=== PATIENT | female | born 1955 | race Caucasian/White ===

== ENCOUNTER 2019-12-01 22:49 | Emergency (ER) | payer BC, MEDICARE ==
[~2019-12-01] VITALS: Ht 157.5 cm; Wt 54.0 kg
[~2019-12-01 22:49] MED LIST: ASPI-1071 PO; ATOR20TA66 PO; LOSA25TA96 PO; OMEP40CA13 PO; OXYC-150 PO
--- NOTE | 2019-12-01 22:55 | NUR ---
MD DUNN AWARE THAT PT WAS JUST SEEN AND D\C'D YESTERDAY WITH DX OF TIA. 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
--- NOTE | 2019-12-01 22:59 | NUR ---
PT TO CT SCAN WITH PRIMARY RN
[2019-12-01 23:24] LABS: BASOPHILS # (AUTO) 0.1 X10'3 (0-0.2); BASOPHILS % (AUTO) 0.7 % (0-1); EOSINOPHILS # (AUTO) 0.1 X10'3 (0-0.9); EOSINOPHILS % (AUTO) 1.9 % (0-6); HEMATOCRIT 37.8 % (35.0-45.0); LYMPHOCYTES # (AUTO) 3.2 X10'3 (1.1-4.8); LYMPHOCYTES % (AUTO) 45.2 % (21-51); MEAN CORPUSCULAR HEMOGLOBIN 33.4 PG (27.0-31.0); MEAN CORPUSCULAR HGB CONC 34.5 g/dL (33.0-36.5); MEAN CORPUSCULAR VOLUME 96.9 FL (78-98); MEAN PLATELET VOLUME 6.7 FL (7.4-10.4); MONOCYTES # (AUTO) 0.6 X10'3 (0-0.9); MONOCYTES % (AUTO) 8.5 % (2-12); NEUTROPHILS % (AUTO) 43.7 % (42-75); PLATELET COUNT 319 X10'3 (140-440); RED CELL DISTRIBUTION WIDTH 12.5 % (11.5-14.5)
[2019-12-01 23:35] LABS: PARTIAL THROMBOPLASTIN TIME 25 SECONDS (22-32)
[2019-12-01 23:37] LABS: ALANINE AMINOTRANSFERASE 18 U/L (12-78); ALBUMIN 4.3 G/DL (3.4-5.0); ALBUMIN/GLOBULIN RATIO 1.6 (1.1-1.5); ALKALINE PHOSPHATASE 76 IU/L (46-116); ANION GAP 10 (8-16); ASPARTATE AMINO TRANSFERASE 14 U/L (10-37); BILIRUBIN,TOTAL 0.4 MG/DL (0.1-1.0); BLOOD UREA NITROGEN 7 MG/DL (7-18); BUN/CREATININE RATIO 12.3 (6.6-38.0); CALCIUM 10.2 MG/DL (8.5-10.1); CHLORIDE 104 MMOL/L (99-107); CREATININE 0.57 MG/DL (0.40-0.90); GLUCOSE 93 MG/DL (70-104); POTASSIUM 3.1 MMOL/L (3.5-5.1); SODIUM 143 MMOL/L (135-145); TOTAL CARBON DIOXIDE 29.3 MMOL/L (24-32); eGFR > 90 ML/MIN
[2019-12-01 23:40] LABS: TROPONIN I < 0.04 NG/ML (0.0-0.05)
--- NOTE | 2019-12-01 23:55 | NUR ---
Called in for a level 1 stroke alert.
--- NOTE | 2019-12-02 00:30 | NUR ---
Per Dr. Mays the level stroke alert is cancelled due to it being caused by neck issues. Patient will be d/c home on potassium and she has already has md appointment to see Dr. Miller today.
[2019-12-02] MEDS ORDERED: potassium Cl 20 mEq SR tablet PO ONE (00:35)
[2019-12-02] MEDS ORDERED: morphine 4 MG/ML inj SYRINge IM ONE (00:35)
[2019-12-02 00:54] VITALS: BP 136/85
== END 2019-12-02 00:56 | disposition home or self-care (01) ==
LOC: ER 22:49
DX: R00.2 Palpitations (principal); M79.602 Pain in left arm; R20.0 Anesthesia of skin; R51 Headache; I10 Essential (primary) hypertension; G89.29 Other chronic pain; R42 Dizziness and giddiness; R20.2 Paresthesia of skin; M54.2 Cervicalgia; Z79.82 Long term (current) use of aspirin; Z79.899 Other long term (current) drug therapy; Z86.73 Personal history of transient ischemic attack (TIA), and cerebral infarction without residual deficits
CPT/HCPCS: 36415; 70450; 71045; 80053; 82948; 84484; 85025; 85610; 85730; 93005; 96372; 99284; J2270

== ENCOUNTER 2019-12-18 12:20 | Emergency (ER) | payer BC, MEDICARE ==
[~2019-12-18] VITALS: Ht 157.5 cm; Wt 54.0 kg
[2019-12-18] MEDS ORDERED: HYDR-4353 PO (13:26)
[2019-12-18] MEDS ORDERED: meclizine 12.5mg tablet PO ONE (15:50)
[2019-12-18] MEDS ORDERED: LORazepam 2 mg/ml vial IV ONE (15:50)
[2019-12-18] MEDS ORDERED: glucagon, human recombinant 1mg kit IV ONE (15:50)
[2019-12-18] MEDS ORDERED: ondansetron 4mg rapidly disintigrating tab PO ONE (15:50)
[2019-12-18] MEDS ORDERED: ondansetron/PF 4mg/2ml inj IV ONE (16:00)
[2019-12-18] MEDS ORDERED: morphine 4 MG/ML inj SYRINge IV ONE (16:00)
[2019-12-18 16:46] LABS: BASOPHILS % (AUTO) 0.3 % (0-1); EOSINOPHILS % (AUTO) 0.6 % (0-6); HEMATOCRIT 39.9 % (35.0-45.0); HEMOGLOBIN 13.4 g/dl (12.0-16.0); LYMPHOCYTES % (AUTO) 34.2 % (21-51); MEAN CORPUSCULAR HEMOGLOBIN 31.7 PG (27.0-31.0); MEAN CORPUSCULAR HGB CONC 33.6 g/dL (33.0-36.5); MEAN CORPUSCULAR VOLUME 94.5 FL (78-98); MEAN PLATELET VOLUME 7.1 FL (7.4-10.4); MONOCYTES # (AUTO) 0.5 X10'3 (0-0.9); NEUTROPHILS # (AUTO) 3.4 X10'3 (1.8-7.7); NEUTROPHILS % (AUTO) 56.9 % (42-75); PLATELET COUNT 324 X10'3 (140-440); RED BLOOD COUNT 4.23 X10'6 (4.20-5.60); RED CELL DISTRIBUTION WIDTH 11.9 % (11.5-14.5); WHITE BLOOD COUNT 5.9 X10'3 (4.5-11.0)
[2019-12-18 17:01] LABS: ALANINE AMINOTRANSFERASE 20 U/L (12-78); ALBUMIN 4.2 G/DL (3.4-5.0); ALBUMIN/GLOBULIN RATIO 1.4 (1.1-1.5); ALKALINE PHOSPHATASE 78 IU/L (46-116); ANION GAP 6 (8-16); ASPARTATE AMINO TRANSFERASE 15 U/L (10-37); BLOOD UREA NITROGEN 4 MG/DL (7-18); CALCIUM 10.2 MG/DL (8.5-10.1); CHLORIDE 107 MMOL/L (99-107); GLUCOSE 97 MG/DL (70-104); POTASSIUM 3.6 MMOL/L (3.5-5.1); SODIUM 143 MMOL/L (135-145); TOTAL CARBON DIOXIDE 30.2 MMOL/L (24-32); TOTAL PROTEIN 7.1 G/DL (6.4-8.2); eGFR > 90 ML/MIN
[2019-12-18] MEDS ORDERED: ONDA4TAB6 PO (19:44)
[2019-12-18] MEDS ORDERED: MECL-159 PO (19:44)
[2019-12-18] MEDS ORDERED: ZOLP5TAB2 PO (19:50)
[2019-12-18] MEDS ORDERED: POTA10TA36 PO (19:50)
--- NOTE | 2019-12-18 19:53 | NUR ---
GI LAB CALLED AT 1952. ETA 30 MINS FOR GI
[2019-12-18] MEDS ORDERED: LIDOcaine Viscous 15ml cup ONE (20:24)
[2019-12-18] MEDS ORDERED: fentaNYL/PF 50MCG/1 ML 2ML syringe ONE (20:24)
[2019-12-18] MEDS ORDERED: MIDAZolam 5mg/5ml vial ONE (20:24)
--- NOTE | 2019-12-18 20:33 | NUR ---
PT WENT TO THE GI LAB
[2019-12-18 20:35] VITALS: BP 131/85
[2019-12-18 20:55] VITALS: BP 121/71
[2019-12-18 21:05] VITALS: BP 106/70
[2019-12-18 21:15] VITALS: BP 107/64
[2019-12-18 21:25] VITALS: BP 103/65
[2019-12-18 21:53] VITALS: BP 111/78
== END 2019-12-18 21:54 | disposition home or self-care (01) ==
LOC: ER 12:21
DX: R13.10 Dysphagia, unspecified (principal); R42 Dizziness and giddiness; G89.29 Other chronic pain; M54.2 Cervicalgia; E04.9 Nontoxic goiter, unspecified; I10 Essential (primary) hypertension; Z86.73 Personal history of transient ischemic attack (TIA), and cerebral infarction without residual deficits; Z98.890 Other specified postprocedural states; Z79.82 Long term (current) use of aspirin; Z79.899 Other long term (current) drug therapy
CPT/HCPCS: 36415; 43450; 80053; 84439; 84443; 85025; 93005; 96374; 96375; 99152; 99285; J1610; J2060; J2250; J2270; J2405; J3010; J7040; J8597; A4620

== ENCOUNTER 2019-12-20 22:09 | Emergency (ER) | payer BC, MEDICARE ==
[~2019-12-20] VITALS: Ht 157.5 cm; Wt 54.5 kg
[~2019-12-20 22:09] MED LIST changes: -ATOR20TA66 PO; +HYDR-4353 PO; +MECL-159 PO; +ONDA4TAB6 PO; -OXYC-150 PO; +POTA10TA36 PO; +ZOLP5TAB2 PO
[2019-12-20] MEDS ORDERED: morphine 4 MG/ML inj SYRINge IV ONE (22:40)
[2019-12-20] MEDS ORDERED: normal saline 1000ml 1,000 ML IV ONE (22:40)
[2019-12-20] MEDS ORDERED: meclizine 12.5mg tablet PO ONE (22:40)
[2019-12-20] MEDS ORDERED: ketorolac trometh. 30mg/ml inj. IV ONE (22:40)
[2019-12-20] MEDS ORDERED: ondansetron/PF 4mg/2ml inj IV ONE (22:40)
[2019-12-20 22:57] LABS: BASOPHILS % (AUTO) 0.5 % (0-1); EOSINOPHILS # (AUTO) 0.1 X10'3 (0-0.9); EOSINOPHILS % (AUTO) 1.4 % (0-6); HEMATOCRIT 40.2 % (35.0-45.0); HEMOGLOBIN 13.7 g/dl (12.0-16.0); LYMPHOCYTES # (AUTO) 3.5 X10'3 (1.1-4.8); LYMPHOCYTES % (AUTO) 54.9 % (21-51); MEAN CORPUSCULAR HEMOGLOBIN 32.6 PG (27.0-31.0); MEAN CORPUSCULAR HGB CONC 34.2 g/dL (33.0-36.5); MEAN CORPUSCULAR VOLUME 95.3 FL (78-98); MONOCYTES # (AUTO) 0.4 X10'3 (0-0.9); MONOCYTES % (AUTO) 6.9 % (2-12); NEUTROPHILS # (AUTO) 2.3 X10'3 (1.8-7.7); NEUTROPHILS % (AUTO) 36.3 % (42-75); PLATELET COUNT 318 X10'3 (140-440); RED BLOOD COUNT 4.22 X10'6 (4.20-5.60); RED CELL DISTRIBUTION WIDTH 12.2 % (11.5-14.5); WHITE BLOOD COUNT 6.3 X10'3 (4.5-11.0)
[2019-12-20 23:12] LABS: ALANINE AMINOTRANSFERASE 20 U/L (12-78); ALBUMIN 4.2 G/DL (3.4-5.0); ALBUMIN/GLOBULIN RATIO 1.4 (1.1-1.5); ALKALINE PHOSPHATASE 77 IU/L (46-116); ANION GAP 8 (8-16); ASPARTATE AMINO TRANSFERASE 18 U/L (10-37); BILIRUBIN,TOTAL 0.5 MG/DL (0.1-1.0); BLOOD UREA NITROGEN 7 MG/DL (7-18); BUN/CREATININE RATIO 13.2 (6.6-38.0); CALCIUM 10.1 MG/DL (8.5-10.1); CHLORIDE 107 MMOL/L (99-107); CREATININE 0.53 MG/DL (0.40-0.90); GLUCOSE 93 MG/DL (70-104); POTASSIUM 3.7 MMOL/L (3.5-5.1); SODIUM 143 MMOL/L (135-145); TOTAL CARBON DIOXIDE 27.6 MMOL/L (24-32); TOTAL PROTEIN 7.2 G/DL (6.4-8.2); eGFR > 90 ML/MIN
[2019-12-20] MEDS ORDERED: LORA-269 PO (23:47)
[2019-12-20] MEDS ORDERED: MECL-159 PO (23:47)
[2019-12-21 00:03] VITALS: BP 130/86
== END 2019-12-21 00:16 | disposition home or self-care (01) ==
LOC: ER 22:10
DX: R42 Dizziness and giddiness (principal); I10 Essential (primary) hypertension; G89.29 Other chronic pain; Z86.73 Personal history of transient ischemic attack (TIA), and cerebral infarction without residual deficits; Z98.890 Other specified postprocedural states; Z79.82 Long term (current) use of aspirin; Z79.899 Other long term (current) drug therapy
CPT/HCPCS: 71045; 80053; 84484; 85025; 93005; 96361; 96374; 96375; 99285; J1885; J2270; J2405; J7030; J8597

== ENCOUNTER 2020-06-20 10:07 | Emergency (ER) | payer BC, MEDICARE ==
[~2020-06-20] VITALS: Ht 157.5 cm; Wt 54.5 kg
[~2020-06-20 10:07] MED LIST changes: +LORA-269 PO
[2020-06-20 10:34] LABS: BASOPHILS % (AUTO) 0.2 % (0-1); EOSINOPHILS % (AUTO) 0.9 % (0-6); HEMATOCRIT 40.7 % (35.0-45.0); HEMOGLOBIN 13.6 g/dl (12.0-16.0); LYMPHOCYTES # (AUTO) 1.4 X10'3 (1.1-4.8); LYMPHOCYTES % (AUTO) 27.1 % (21-51); MEAN CORPUSCULAR HEMOGLOBIN 31.9 PG (27.0-31.0); MEAN CORPUSCULAR HGB CONC 33.4 g/dL (33.0-36.5); MEAN CORPUSCULAR VOLUME 95.6 FL (78-98); MEAN PLATELET VOLUME 6.8 FL (7.4-10.4); MONOCYTES # (AUTO) 0.4 X10'3 (0-0.9); NEUTROPHILS # (AUTO) 3.4 X10'3 (1.8-7.7); NEUTROPHILS % (AUTO) 64.8 % (42-75); PLATELET COUNT 327 X10'3 (140-440); RED BLOOD COUNT 4.26 X10'6 (4.20-5.60); WHITE BLOOD COUNT 5.3 X10'3 (4.5-11.0)
[2020-06-20 10:47] LABS: ALANINE AMINOTRANSFERASE 24 U/L (12-78); ALBUMIN 4.5 G/DL (3.4-5.0); ALBUMIN/GLOBULIN RATIO 1.4 (1.1-1.5); ALKALINE PHOSPHATASE 96 IU/L (46-116); ANION GAP 9 (8-16); ASPARTATE AMINO TRANSFERASE 18 U/L (10-37); BILIRUBIN,TOTAL 0.9 MG/DL (0.1-1.0); BLOOD UREA NITROGEN 7 MG/DL (7-18); BUN/CREATININE RATIO 13.5 (6.6-38.0); CALCIUM 9.9 MG/DL (8.5-10.1); CHLORIDE 104 MMOL/L (99-107); CREATININE 0.52 MG/DL (0.40-0.90); GLUCOSE 102 MG/DL (70-104); POTASSIUM 3.8 MMOL/L (3.5-5.1); SODIUM 140 MMOL/L (135-145); TOTAL CARBON DIOXIDE 26.9 MMOL/L (24-32); TOTAL PROTEIN 7.7 G/DL (6.4-8.2); eGFR > 90 ML/MIN
[2020-06-20] MEDS ORDERED: ondansetron 4mg rapidly disintigrating tab PO ONE (13:20)
[2020-06-20] MEDS ORDERED: ketorolac tromethamine 15mg/ml inj. IM ONE (13:20)
[2020-06-20 13:40] LABS: D-DIMER < 0.19 MG/L FEU (0-0.50)
[2020-06-20 14:15] VITALS: BP 119/81
== END 2020-06-20 14:16 | disposition home or self-care (01) ==
LOC: ER 10:08
DX: R07.89 Other chest pain (principal); R22.42 Localized swelling, mass and lump, left lower limb; R10.32 Left lower quadrant pain; R06.02 Shortness of breath; I10 Essential (primary) hypertension; G89.29 Other chronic pain; Z98.890 Other specified postprocedural states; Z86.73 Personal history of transient ischemic attack (TIA), and cerebral infarction without residual deficits; Z79.82 Long term (current) use of aspirin; Z79.899 Other long term (current) drug therapy
CPT/HCPCS: 36415; 71045; 80053; 83880; 84484; 85025; 85379; 93005; 96372; 99285; J1885

== ENCOUNTER 2021-09-22 09:30 | Outpatient (CLI) | payer MEDICARE ==
[~2021-09-22 09:30] MED LIST changes: -OMEP40CA13 PO; +OMEP40CA21 PO; +POTA-205 PO; -POTA10TA36 PO
[2021-09-22] MEDS ORDERED: iohexol 300mg/ml 100ml inj. ONE (09:44)
== END 2021-09-22 23:59 | disposition home or self-care (01) ==
LOC: RAD 09:30
PROVIDERS: ATTEND Family Medicine
DX: K57.30 Diverticulosis of large intestine without perforation or abscess without bleeding (principal); M51.36 Other intervertebral disc degeneration, lumbar region; Z90.710 Acquired absence of both cervix and uterus; K76.0 Fatty (change of) liver, not elsewhere classified; K76.89 Other specified diseases of liver; K44.9 Diaphragmatic hernia without obstruction or gangrene
CPT/HCPCS: 74177; Q9967

== ENCOUNTER 2023-07-15 12:50 | Outpatient (CLI) | payer MEDICARE ==
[~2023-07-15 12:50] MED LIST changes: +LOSA-415 PO; -LOSA25TA96 PO; -MECL-159 PO; +MECL-302 PO
[2023-07-15 14:14] LABS: BILIRUBIN,URINE NEGATIVE (Neg); CLARITY,URINE CLEAR (Clear); COLOR,URINE STRAW (Yellow); GLUCOSE, URINE NEGATIVE (Neg); KETONES,URINE NEGATIVE (Neg); LEUKOCYTE ESTERASE ,URINE NEGATIVE (Neg); NITRITES, URINE NEGATIVE (Neg); OCCULT BLOOD,URINE TRACE-INTACT (Neg); PROTEIN,URINE NEGATIVE (Neg); UROBILINOGEN,URINE 0.2 E.U/dL (0.2-1.0)
[2023-07-15 14:15] LABS: BASOPHILS % (AUTO) 0.1 % (0-1); EOSINOPHILS % (AUTO) 0 % (0-6); HEMATOCRIT 40.9 % (35.0-45.0); HEMOGLOBIN 13.6 g/dl (12.0-16.0); LYMPHOCYTES # (AUTO) 0.7 X10'3 (1.1-4.8); LYMPHOCYTES % (AUTO) 8.6 % (21-51); MEAN CORPUSCULAR HEMOGLOBIN 33.4 PG (27.0-31.0); MEAN CORPUSCULAR HGB CONC 33.2 g/dL (33.0-36.5); MEAN CORPUSCULAR VOLUME 100.4 FL (78-98); MEAN PLATELET VOLUME 6.9 FL (7.4-10.4); MONOCYTES # (AUTO) 0.4 X10'3 (0-0.9); MONOCYTES % (AUTO) 5.4 % (2-12); NEUTROPHILS # (AUTO) 6.5 X10'3 (1.8-7.7); NEUTROPHILS % (AUTO) 85.9 % (42-75); PLATELET COUNT 308 X10'3 (140-440); RED BLOOD COUNT 4.07 X10'6 (4.20-5.60); RED CELL DISTRIBUTION WIDTH 14.1 % (11.5-14.5); WHITE BLOOD COUNT 7.5 X10'3 (4.5-11.0)
[2023-07-15 14:16] LABS: UA COLLECTION TYPE CLN CATCH MIDSTREAM
[2023-07-15 14:22] LABS: WBC,URINE 0-4 /HPF (0-4)
[2023-07-15 14:23] LABS: BACTERIA,URINE FEW /HPF (Neg); SQUAMOUS EPITHELIAL CELL,UR MODERATE /LPF (FEW)
[2023-07-15 14:36] LABS: ALANINE AMINOTRANSFERASE 22 U/L (12-78); ALBUMIN 4.2 G/DL (3.4-5.0); ALBUMIN/GLOBULIN RATIO 1.3 (1.1-1.5); ALKALINE PHOSPHATASE 89 IU/L (46-116); ANION GAP 6 (8-16); ASPARTATE AMINO TRANSFERASE 27 U/L (10-37); BILIRUBIN,TOTAL 1.6 MG/DL (0.1-1.0); BLOOD UREA NITROGEN 8 MG/DL (7-18); BUN/CREATININE RATIO 14.5 (10.0-20.0); CALCIUM 10.2 MG/DL (8.5-10.1); CHLORIDE 102 MMOL/L (99-107); CHOLESTEROL 290 MG/DL (0-200); CREATININE 0.55 MG/DL (0.40-0.90); FREE T4 (FREE THYROXINE) 0.75 NG/DL (0.73-1.40); GLUCOSE 111 MG/DL (70-104); LDL CHOLESTEROL 103 MG/DL (50-100); POTASSIUM 4.3 MMOL/L (3.5-5.1); SODIUM 138 MMOL/L (135-145); TOTAL CARBON DIOXIDE 29.8 MMOL/L (24-32); TOTAL PROTEIN 7.4 G/DL (6.4-8.2); TRIGLYCERIDES 96 MG/DL (20-135); eGFR > 90 ML/MIN
[2023-07-15 15:03] LABS: HDL CHOLESTEROL 151 MG/DL (35-60)
== END 2023-07-15 23:59 | disposition home or self-care (01) ==
LOC: RAD 12:50
PROVIDERS: ATTEND Family Medicine
DX: M47.812 Spondylosis without myelopathy or radiculopathy, cervical region (principal); M48.02 Spinal stenosis, cervical region; M43.13 Spondylolisthesis, cervicothoracic region; M54.2 Cervicalgia; I10 Essential (primary) hypertension; E05.90 Thyrotoxicosis, unspecified without thyrotoxic crisis or storm
CPT/HCPCS: 36415; 72141; 80053; 80061; 81001; 84439; 84443; 85025

== ENCOUNTER 2023-12-25 11:26 | Inpatient (IN) | payer MEDICARE ==
[~2023-12-25] VITALS: Ht 157.5 cm; Wt 54.5 kg
[2023-12-25 14:23] LABS: BASOPHILS % (AUTO) 0.3 % (0-1); EOSINOPHILS # (AUTO) 0.1 X10'3 (0-0.9); EOSINOPHILS % (AUTO) 0.9 % (0-6); HEMATOCRIT 41.4 % (35.0-45.0); HEMOGLOBIN 13.8 g/dl (12.0-16.0); LYMPHOCYTES % (AUTO) 34.9 % (21-51); MEAN CORPUSCULAR HEMOGLOBIN 32.9 PG (27.0-31.0); MEAN CORPUSCULAR HGB CONC 33.2 g/dL (33.0-36.5); MEAN PLATELET VOLUME 6.7 FL (7.4-10.4); MONOCYTES # (AUTO) 0.5 X10'3 (0-0.9); MONOCYTES % (AUTO) 8.5 % (2-12); NEUTROPHILS # (AUTO) 3.1 X10'3 (1.8-7.7); NEUTROPHILS % (AUTO) 55.4 % (42-75); PLATELET COUNT 226 X10'3 (140-440); RED BLOOD COUNT 4.18 X10'6 (4.20-5.60); RED CELL DISTRIBUTION WIDTH 14.1 % (11.5-14.5); WHITE BLOOD COUNT 5.6 X10'3 (4.5-11.0)
[2023-12-25 14:42] LABS: ALBUMIN 4.2 G/DL (3.4-5.0); ANION GAP 10 (8-16); BLOOD UREA NITROGEN 8 MG/DL (7-18); BUN/CREATININE RATIO 14.8 (10.0-20.0); CALCIUM 9.7 MG/DL (8.5-10.1); CHLORIDE 103 MMOL/L (99-107); CREATININE 0.54 MG/DL (0.40-0.90); GLUCOSE 142 MG/DL (70-104); SODIUM 141 MMOL/L (135-145); TOTAL CARBON DIOXIDE 28.1 MMOL/L (24-32); eCRCL 80 ML/MIN; eGFR > 90 ML/MIN
[2023-12-25 14:47] LABS: APTT 22 SECONDS (22-32); PROTHROMBIN TIME 10.7 SECONDS (9.0-12.0)
[2023-12-25] MEDS ORDERED: magnesium Cl slow-release 64mg tablet PO PRN (17:45)
[2023-12-25] MEDS ORDERED: potassium Cl 20 mEq SR tablet PO PRN ×2 (17:45)
[2023-12-25] MEDS ORDERED: potassium Cl 40MEQ/1/2NS 520ml 520 ML IV PRN (17:45)
[2023-12-25] MEDS ORDERED: magnesium 4gm in 100ml NS 100 ML IV PRN (17:45)
[2023-12-25] MEDS ORDERED: magnesium 2GM in 50ml NS 50 ML IV PRN (17:45)
[2023-12-25] MEDS ORDERED: acetaminophen 325mg tablet PO PRN ×2 (17:45)
[2023-12-25] MEDS: aspirin 325mg tablet PO ONE (18:18)
[2023-12-25] MEDS: normal saline 1000ml 1,000 ML IV SCH (19:18)
[2023-12-25] MEDS: enoxaparin 40mg/0.4ml syringe SQ SCH (19:27)
[2023-12-25] MEDS: ondansetron/PF 4mg/2ml inj IV PRN (19:27)
[2023-12-25] MEDS: HYDROcodone/acetaminophen 5mg/325mg tablet PO PRN (19:28)
[2023-12-25] MEDS: morphine 2 MG/ML inj. syringe IV PRN (20:57)
[2023-12-25] MEDS: pantoprazole 40mg Tablet.DR PO STA (22:48)
[2023-12-26] MEDS ORDERED: ATEN50TA8 PO (00:10)
[2023-12-26] MEDS ORDERED: PANT40TA54 PO (00:10)
[2023-12-26] MEDS ORDERED: METH-604 (00:10)
[2023-12-26] MEDS ORDERED: ZOLP10TA PO (00:10)
[2023-12-26] MEDS ORDERED: PANT-47 PO (00:12)
[2023-12-26] MEDS: HYDROcodone/acetaminophen 10/325mg tab PO SCH (01:19)
[2023-12-26] MEDS: zolpidem 5mg tablet PO ONE (01:19)
[2023-12-26 03:37] LABS: BASOPHILS % (AUTO) 0.2 % (0-1); EOSINOPHILS # (AUTO) 0.1 X10'3 (0-0.9); EOSINOPHILS % (AUTO) 1.9 % (0-6); HEMATOCRIT 35.9 % (35.0-45.0); HEMOGLOBIN 11.9 g/dl (12.0-16.0); LYMPHOCYTES % (AUTO) 41.5 % (21-51); MEAN CORPUSCULAR HEMOGLOBIN 32.7 PG (27.0-31.0); MEAN CORPUSCULAR HGB CONC 33.2 g/dL (33.0-36.5); MEAN CORPUSCULAR VOLUME 98.4 FL (78-98); MEAN PLATELET VOLUME 6.7 FL (7.4-10.4); MONOCYTES # (AUTO) 0.5 X10'3 (0-0.9); MONOCYTES % (AUTO) 10.5 % (2-12); NEUTROPHILS # (AUTO) 2.2 X10'3 (1.8-7.7); NEUTROPHILS % (AUTO) 45.9 % (42-75); PLATELET COUNT 192 X10'3 (140-440); RED BLOOD COUNT 3.64 X10'6 (4.20-5.60); WHITE BLOOD COUNT 4.8 X10'3 (4.5-11.0)
[2023-12-26 03:45] LABS: ALANINE AMINOTRANSFERASE 20 U/L (12-78); ALBUMIN 3.3 G/DL (3.4-5.0); ALBUMIN/GLOBULIN RATIO 1.3 (1.1-1.5); ALKALINE PHOSPHATASE 84 IU/L (46-116); ANION GAP 4 (8-16); ASPARTATE AMINO TRANSFERASE 20 U/L (10-37); BILIRUBIN,TOTAL 1.2 MG/DL (0.1-1.0); BLOOD UREA NITROGEN 8 MG/DL (7-18); BUN/CREATININE RATIO 16.3 (10.0-20.0); CHLORIDE 108 MMOL/L (99-107); CREATININE 0.49 MG/DL (0.40-0.90); GLUCOSE 111 MG/DL (70-104); POTASSIUM 3.6 MMOL/L (3.5-5.1); SODIUM 143 MMOL/L (135-145); TOTAL CARBON DIOXIDE 31.1 MMOL/L (24-32); TOTAL PROTEIN 5.8 G/DL (6.4-8.2); eCRCL 88 ML/MIN; eGFR > 90 ML/MIN
[2023-12-26] MEDS: aspirin 81mg, enteric-coated 1 TAB TABLET.DR PO SCH (07:14)
[2023-12-26] MEDS: pantoprazole 40mg Tablet.DR PO SCH (08:19)
[2023-12-26] MEDS: LORazepam 1 MG tablet PO ONE (08:19)
[2023-12-26] MEDS: atenolol 50mg tablet PO SCH (08:20)
[2023-12-26] MEDS: atorvastatin 20mg tablet PO SCH (10:41)
[2023-12-26] MEDS: clopidogrel 75mg tablet PO SCH (10:41)
[2023-12-26 12:37] LABS: CHOL/HDL RATIO 2.2 (0.00-4.99); CHOLESTEROL 201 MG/DL (0-200); HDL CHOLESTEROL 90 MG/DL (35-60); LDL CHOLESTEROL 84 MG/DL (50-100); TRIGLYCERIDES 96 MG/DL (20-135)
[2023-12-26 12:52] LABS: HEMOGLOBIN A1C 4.9 % (4.5-6.2)
[2023-12-26] MEDS ORDERED: iohexol 350MG/ML 100ml bottle IV ONE (13:39)
[2023-12-26 20:00] VITALS: BP 125/77; PULSE 83; RESP 16; TEMP 98.2; O2SAT 98
[2023-12-26] MEDS: zolpidem 5mg tablet PO SCH (21:30)
[2023-12-26 22:00] VITALS: BP 128/88; PULSE 80; RESP 16; TEMP 97.9; O2SAT 95
[2023-12-27 00:04] VITALS: BP 123/71; PULSE 72; RESP 16; TEMP 98; O2SAT 98
[2023-12-27 04:03] VITALS: BP 126/90; PULSE 66; RESP 16; TEMP 97.7; O2SAT 95
[2023-12-27 06:00] VITALS: BP 130/84; PULSE 71; RESP 16; TEMP 97.9; O2SAT 96
[2023-12-27 06:11] LABS: BASOPHILS % (AUTO) 0.2 % (0-1); EOSINOPHILS # (AUTO) 0.1 X10'3 (0-0.9); EOSINOPHILS % (AUTO) 2.3 % (0-6); HEMOGLOBIN 11.8 g/dl (12.0-16.0); LYMPHOCYTES # (AUTO) 1.9 X10'3 (1.1-4.8); LYMPHOCYTES % (AUTO) 49.1 % (21-51); MEAN CORPUSCULAR HEMOGLOBIN 33.4 PG (27.0-31.0); MEAN CORPUSCULAR HGB CONC 33.7 g/dL (33.0-36.5); MEAN CORPUSCULAR VOLUME 99.1 FL (78-98); MEAN PLATELET VOLUME 6.7 FL (7.4-10.4); MONOCYTES # (AUTO) 0.4 X10'3 (0-0.9); MONOCYTES % (AUTO) 10.2 % (2-12); NEUTROPHILS # (AUTO) 1.5 X10'3 (1.8-7.7); NEUTROPHILS % (AUTO) 38.2 % (42-75); PLATELET COUNT 191 X10'3 (140-440); RED BLOOD COUNT 3.53 X10'6 (4.20-5.60); WHITE BLOOD COUNT 3.9 X10'3 (4.5-11.0)
[2023-12-27 06:33] LABS: ALANINE AMINOTRANSFERASE 16 U/L (12-78); ALBUMIN 3.3 G/DL (3.4-5.0); ALBUMIN/GLOBULIN RATIO 1.3 (1.1-1.5); ALKALINE PHOSPHATASE 77 IU/L (46-116); ANION GAP 9 (8-16); ASPARTATE AMINO TRANSFERASE 19 U/L (10-37); BILIRUBIN,TOTAL 1.2 MG/DL (0.1-1.0); BLOOD UREA NITROGEN 6 MG/DL (7-18); CHLORIDE 111 MMOL/L (99-107); CREATININE 0.46 MG/DL (0.40-0.90); GLUCOSE 95 MG/DL (70-104); POTASSIUM 3.8 MMOL/L (3.5-5.1); SODIUM 147 MMOL/L (135-145); TOTAL CARBON DIOXIDE 26.6 MMOL/L (24-32); TOTAL PROTEIN 5.8 G/DL (6.4-8.2); eCRCL 94 ML/MIN; eGFR > 90 ML/MIN
[2023-12-27] MEDS: morphine 2 MG/ML inj. syringe IV PRN (09:26)
[2023-12-27 10:00] VITALS: BP 142/80; PULSE 71; RESP 16; TEMP 98.6; O2SAT 95
[2023-12-27] MEDS ORDERED: ASPI-1071 PO (12:22)
[2023-12-27] MEDS ORDERED: ATOR20TA66 PO (12:22)
[2023-12-27] MEDS ORDERED: PANT40TA54 PO (12:22)
[2023-12-27] MEDS ORDERED: CLOP75TA34 PO (14:32)
[2023-12-27 15:15] VITALS: RESP 15
[2023-12-27] MEDS ORDERED: HYDR-3965 PO (17:29)
== END 2023-12-27 15:30 | disposition home health service (06) | DRG 65 ==
LOC: ER 11:27 → ED HOLD 17:49 → EDBEDREQ 12-26 18:25 → ORTHO 4S 12-26 19:28
PROVIDERS: ADMIT Internal Medicine; ATTEND Internal Medicine
PROC: B3251ZZ Computerized Tomography (CT Scan) of Bilateral Common Carotid Arteries using Low Osmolar Contrast (ICD-10-PCS; principal; 2023-12-26)
PROC: B32G1ZZ Computerized Tomography (CT Scan) of Bilateral Vertebral Arteries using Low Osmolar Contrast (ICD-10-PCS; 2023-12-26)
PROC: B32R1ZZ Computerized Tomography (CT Scan) of Intracranial Arteries using Low Osmolar Contrast (ICD-10-PCS; 2023-12-26)
PROC: B3281ZZ Computerized Tomography (CT Scan) of Bilateral Internal Carotid Arteries using Low Osmolar Contrast (ICD-10-PCS; 2023-12-26)
DX: I63.9 Cerebral infarction, unspecified (principal); E44.1 Mild protein-calorie malnutrition; E87.1 Hypo-osmolality and hyponatremia; G81.91 Hemiplegia, unspecified affecting right dominant side; K21.9 Gastro-esophageal reflux disease without esophagitis; E78.5 Hyperlipidemia, unspecified; E87.8 Other disorders of electrolyte and fluid balance, not elsewhere classified; G89.4 Chronic pain syndrome; M43.12 Spondylolisthesis, cervical region; E80.6 Other disorders of bilirubin metabolism; D53.9 Nutritional anemia, unspecified; I67.82 Cerebral ischemia; E03.9 Hypothyroidism, unspecified; G43.909 Migraine, unspecified, not intractable, without status migrainosus; I10 Essential (primary) hypertension; Z82.3 Family history of stroke; Z82.49 Family history of ischemic heart disease and other diseases of the circulatory system; Z86.73 Personal history of transient ischemic attack (TIA), and cerebral infarction without residual deficits; Z98.1 Arthrodesis status; Z68.22 Body mass index [BMI] 22.0-22.9, adult; Z79.891 Long term (current) use of opiate analgesic
CPT/HCPCS: 36415; 70450; 70496; 70498; 70551; 71045; 72125; 80048; 80053; 80061; 82948; 83036; 85025; 85610; 85730; 87081; 93005; 93306; 93880; 97116; 97161; 97530; 99285; G0378; J1650; J2270; J2405; J3490; J7030; Q9967

== ENCOUNTER 2024-01-08 21:40 | Emergency (ER) | payer MEDICARE ==
[~2024-01-08] VITALS: Ht 157.5 cm; Wt 55.0 kg
[~2024-01-08 21:40] MED LIST changes: +ATEN50TA8 PO; +ATOR20TA66 PO; +CLOP75TA34 PO; +HYDR-3965 PO; -LORA-269 PO; -LOSA-415 PO; -MECL-302 PO; +METH-604; -OMEP40CA21 PO; -ONDA4TAB6 PO; +PANT40TA54 PO; -POTA-205 PO; +ZOLP10TA PO; -ZOLP5TAB2 PO
[2024-01-08 21:58] VITALS: TEMP 97.5
[2024-01-08] MEDS: normal saline 1000ML IV soln IVB STA (22:20)
[2024-01-08] MEDS: diphenhydrAMINE 50 mg/ml inj IV ONE (22:22)
[2024-01-08] MEDS: methylPREDNISolone sod succ 125mg/2ml vial IV ONE (22:24)
[2024-01-08] MEDS: famotidine/PF 10 mg/ml inj IV ONE (22:31)
[2024-01-08] MEDS: triamcinolone acetonide 40mg/ml inj IM ONE (22:35)
[2024-01-08 23:30] VITALS: BP 136/81; PULSE 69; RESP 13; O2SAT 95
== END 2024-01-09 00:38 | disposition home or self-care (01) ==
LOC: ER 21:41
DX: K14.0 Glossitis (principal); I10 Essential (primary) hypertension; Z88.8 Allergy status to other drugs, medicaments and biological substances; Z79.899 Other long term (current) drug therapy
CPT/HCPCS: 96361; 96372; 96374; 96375; 99285; J1200; J2930; J3301; J3490; J7030

== ENCOUNTER 2024-02-05 14:09 | Emergency (ER) | payer MEDICARE ==
[~2024-02-05] VITALS: Ht 157.5 cm; Wt 53.0 kg
[~2024-02-05 14:09] MED LIST changes: -ASPI-1071 PO; -CLOP75TA34 PO; -HYDR-3965 PO
[2024-02-05 14:26] VITALS: TEMP 98.8
[2024-02-05 15:05] LABS: BASOPHILS % (AUTO) 0.3 % (0-1); EOSINOPHILS % (AUTO) 0.6 % (0-6); HEMATOCRIT 39.8 % (35.0-45.0); HEMOGLOBIN 13.3 g/dl (12.0-16.0); LYMPHOCYTES # (AUTO) 2.1 X10'3 (1.1-4.8); LYMPHOCYTES % (AUTO) 29.3 % (21-51); MEAN CORPUSCULAR HEMOGLOBIN 31.9 PG (27.0-31.0); MEAN CORPUSCULAR HGB CONC 33.4 g/dL (33.0-36.5); MEAN CORPUSCULAR VOLUME 95.4 FL (78-98); MEAN PLATELET VOLUME 6.8 FL (7.4-10.4); MONOCYTES # (AUTO) 0.4 X10'3 (0-0.9); MONOCYTES % (AUTO) 6.1 % (2-12); NEUTROPHILS # (AUTO) 4.6 X10'3 (1.8-7.7); NEUTROPHILS % (AUTO) 63.7 % (42-75); PLATELET COUNT 269 X10'3 (140-440); RED BLOOD COUNT 4.17 X10'6 (4.20-5.60); RED CELL DISTRIBUTION WIDTH 13.1 % (11.5-14.5); WHITE BLOOD COUNT 7.2 X10'3 (4.5-11.0)
[2024-02-05 15:24] LABS: ALBUMIN 3.8 G/DL (3.4-5.0); ANION GAP 10 (8-16); BLOOD UREA NITROGEN 12 MG/DL (7-18); CALCIUM 9.8 MG/DL (8.5-10.1); CHLORIDE 104 MMOL/L (99-107); CREATININE 0.48 MG/DL (0.40-0.90); GLUCOSE 100 MG/DL (70-104); POTASSIUM 3.5 MMOL/L (3.5-5.1); SODIUM 137 MMOL/L (135-145); TOTAL CARBON DIOXIDE 23.1 MMOL/L (24-32); eCRCL 90 ML/MIN; eGFR > 90 ML/MIN
[2024-02-05] MEDS: mag hydrox/Alum hydrox/simeth 30ml oral suspension PO ONE (15:32)
[2024-02-05] MEDS: meclizine 12.5mg tablet PO ONE (15:32)
[2024-02-05] MEDS: LIDOcaine 2% Viscous 15ml cup TP ONE (15:32)
[2024-02-05 15:57] LABS: LIPASE 27 U/L (16-77)
[2024-02-05] MEDS: ondansetron/PF 4mg/2ml inj IV ONE (16:54)
[2024-02-05] MEDS: HYDROcodone/acetaminophen 10/325mg tab PO ONE (17:18)
[2024-02-05 18:00] VITALS: O2SAT 92
[2024-02-05] MEDS ORDERED: MECL-302 PO (18:24)
[2024-02-05 18:30] VITALS: BP 129/91; PULSE 74; RESP 18
== END 2024-02-05 18:50 | disposition home or self-care (01) ==
LOC: ER 14:10
DX: R07.9 Chest pain, unspecified (principal); I10 Essential (primary) hypertension; E78.00 Pure hypercholesterolemia, unspecified; G89.29 Other chronic pain; Z86.73 Personal history of transient ischemic attack (TIA), and cerebral infarction without residual deficits; G43.909 Migraine, unspecified, not intractable, without status migrainosus; Z88.8 Allergy status to other drugs, medicaments and biological substances; R42 Dizziness and giddiness
CPT/HCPCS: 36415; 71045; 80048; 83690; 84484; 85025; 93005; 96374; 99285; J2405; J8597

== ENCOUNTER 2025-01-06 11:57 | Inpatient (IN) | payer MEDICARE ==
[~2025-01-06] VITALS: Ht 162.6 cm; Wt 54.0 kg
[~2025-01-06 11:57] MED LIST changes: +MECL-302 PO; +METH-1026; -METH-604
[2025-01-06] MEDS ORDERED: iohexol 350MG/ML 100ml bottle IV ONE (12:18)
[2025-01-06 12:36] LABS: BASOPHILS % (AUTO) 0.4 % (0-1); EOSINOPHILS % (AUTO) 1.2 % (0-6); HEMATOCRIT 43.8 % (35.0-45.0); HEMOGLOBIN 14.4 g/dl (12.0-16.0); LYMPHOCYTES # (AUTO) 1.5 X10'3 (1.1-4.8); LYMPHOCYTES % (AUTO) 36.8 % (21-51); MEAN CORPUSCULAR HEMOGLOBIN 32.2 PG (27.0-31.0); MEAN CORPUSCULAR VOLUME 97.7 FL (78-98); MEAN PLATELET VOLUME 6.8 FL (7.4-10.4); MONOCYTES # (AUTO) 0.3 X10'3 (0-0.9); MONOCYTES % (AUTO) 8.2 % (2-12); NEUTROPHILS # (AUTO) 2.2 X10'3 (1.8-7.7); NEUTROPHILS % (AUTO) 53.4 % (42-75); PLATELET COUNT 295 X10'3 (140-440); RED BLOOD COUNT 4.48 X10'6 (4.20-5.60); RED CELL DISTRIBUTION WIDTH 14.3 % (11.5-14.5); WHITE BLOOD COUNT 4.2 X10'3 (4.5-11.0)
[2025-01-06 12:41] LABS: APTT 25 SECONDS (22-32); PROTHROMBIN TIME 10.3 SECONDS (9.0-12.0)
[2025-01-06 12:42] LABS: ALBUMIN 4.7 G/DL (3.4-5.0); ANION GAP 11 (8-16); BLOOD UREA NITROGEN 12 MG/DL (7-18); CALCIUM 10.6 MG/DL (8.5-10.1); CHLORIDE 103 MMOL/L (99-107); CREATININE 0.63 MG/DL (0.40-0.90); GLUCOSE 129 MG/DL (70-104); POTASSIUM 3.5 MMOL/L (3.5-5.1); SODIUM 141 MMOL/L (135-145); TOTAL CARBON DIOXIDE 26.9 MMOL/L (24-32); eCRCL 73 ML/MIN; eGFR > 90 ML/MIN
[2025-01-06] MEDS: normal saline 1000ml 1,000 ML IV ONE (12:54)
[2025-01-06] MEDS ORDERED: mag hydrox/Alum hydrox/simeth 30ml oral suspension PO PRN (15:35)
[2025-01-06] MEDS ORDERED: potassium Cl 20 mEq SR tablet PO PRN ×2 (15:35)
[2025-01-06] MEDS ORDERED: acetaminophen 325mg tablet PO PRN ×2 (15:35→16:00)
[2025-01-06] MEDS ORDERED: magnesium sulf-water 4G/100mL 100 ML IV PRN (15:35)
[2025-01-06] MEDS ORDERED: magnesium Cl slow-release 64mg tablet PO PRN (15:35)
[2025-01-06] MEDS ORDERED: potassium Cl 40MEQ/1/2NS 520ml 520 ML IV PRN (15:35)
[2025-01-06] MEDS ORDERED: magnesium sulf-water 2g/50mL 50 ML IV PRN (15:35)
[2025-01-06] MEDS: ondansetron/PF 4mg/2ml inj IV PRN (16:08)
[2025-01-06] MEDS: aspirin 325mg tablet PO ONE (16:08)
[2025-01-06 16:57] LABS: CHOL/HDL RATIO 2.6 (0.00-4.99); CHOLESTEROL 224 MG/DL (0-200); HDL CHOLESTEROL 86 MG/DL (35-60); LDL CHOLESTEROL 109 MG/DL (50-100); MAGNESIUM 1.7 MG/DL (1.5-2.4); PHOSPHORUS 2.6 MG/DL (2.3-4.5); TRIGLYCERIDES 90 MG/DL (20-135)
[2025-01-06] MEDS: ketorolac trometh 15mg/ml vial 15 MG/ML ML IM ONE (17:04)
[2025-01-06 17:05] LABS: HEMOGLOBIN A1C 4.6 % (4.5-6.2)
[2025-01-06] MEDS: K and/or MAG REPLACEMENT MC SCH (19:04)
[2025-01-06] MEDS: HYDROcodone/acetaminophen 10/325mg tab PO PRN (19:16)
[2025-01-06] MEDS: meclizine 12.5mg tablet PO PRN (19:16)
[2025-01-06] MEDS: pantoprazole 40mg Tablet.DR PO SCH (19:16)
[2025-01-06] MEDS: zolpidem 5mg tablet PO SCH (21:49)
[2025-01-06] MEDS: ketorolac trometh 15mg/ml vial 15 MG/ML ML IV ONE (22:44)
[2025-01-07 02:41] LABS: BASOPHILS % (AUTO) 0.3 % (0-1); EOSINOPHILS # (AUTO) 0.1 X10'3 (0-0.9); EOSINOPHILS % (AUTO) 1.6 % (0-6); HEMATOCRIT 34.9 % (35.0-45.0); HEMOGLOBIN 11.7 g/dl (12.0-16.0); LYMPHOCYTES # (AUTO) 2.7 X10'3 (1.1-4.8); LYMPHOCYTES % (AUTO) 50.8 % (21-51); MEAN CORPUSCULAR HEMOGLOBIN 32.9 PG (27.0-31.0); MEAN CORPUSCULAR HGB CONC 33.5 g/dL (33.0-36.5); MEAN CORPUSCULAR VOLUME 98.3 FL (78-98); MEAN PLATELET VOLUME 6.8 FL (7.4-10.4); MONOCYTES # (AUTO) 0.5 X10'3 (0-0.9); NEUTROPHILS % (AUTO) 37.3 % (42-75); PLATELET COUNT 251 X10'3 (140-440); RED BLOOD COUNT 3.55 X10'6 (4.20-5.60); WHITE BLOOD COUNT 5.4 X10'3 (4.5-11.0)
[2025-01-07 02:53] LABS: ALBUMIN 3.5 G/DL (3.4-5.0); ANION GAP 9 (8-16); BLOOD UREA NITROGEN 8 MG/DL (7-18); CALCIUM 9.5 MG/DL (8.5-10.1); CHLORIDE 108 MMOL/L (99-107); CREATININE 0.42 MG/DL (0.40-0.90); GLUCOSE 103 MG/DL (70-104); POTASSIUM 3.5 MMOL/L (3.5-5.1); SODIUM 143 MMOL/L (135-145); TOTAL CARBON DIOXIDE 26.4 MMOL/L (24-32); eCRCL 109 ML/MIN; eGFR > 90 ML/MIN
[2025-01-07 07:00] VITALS: BP 154/90; PULSE 66; RESP 16; TEMP 97.5; O2SAT 95
[2025-01-07 08:00] VITALS: RESP 16; O2SAT 95
[2025-01-07] MEDS: atorvastatin 20mg tablet PO SCH (08:00)
[2025-01-07] MEDS: SUMAtriptan 25 MG tablet PO ONE (08:50)
[2025-01-07] MEDS: enoxaparin 40mg/0.4ml syringe SUBCUT SCH (08:51)
[2025-01-07] MEDS: predniSONE 20 mg tablet PO SCH (08:57)
[2025-01-07 10:00] VITALS: BP 139/81; PULSE 79; RESP 15; TEMP 97.7; O2SAT 97
[2025-01-07] MEDS: magnesium hydroxide 30ml (MOM) UD suspension PO PRN (10:29)
[2025-01-07] MEDS: atenolol 50mg tablet PO SCH (11:19)
[2025-01-07 16:10] LABS: BILIRUBIN,URINE NEGATIVE (Neg); CLARITY,URINE CLEAR (Clear); COLOR,URINE YELLOW (Yellow); GLUCOSE, URINE NEGATIVE (Neg); KETONES,URINE NEGATIVE (Neg); LEUKOCYTE ESTERASE ,URINE NEGATIVE (Neg); NITRITES, URINE NEGATIVE (Neg); OCCULT BLOOD,URINE TRACE-INTACT (Neg); PROTEIN,URINE NEGATIVE (Neg); UROBILINOGEN,URINE 0.2 E.U/dL (0.2-1.0)
[2025-01-07 16:23] LABS: UA COLLECTION TYPE NON-SPECIFIED
[2025-01-07 16:29] LABS: BACTERIA,URINE 1+ /HPF (Neg); MUCUS STRANDS FEW /LPF (Neg)
[2025-01-07 16:31] LABS: RBC,URINE 0-2 /HPF (0-2); WBC,URINE 0-4 /HPF (0-4)
[2025-01-07 16:32] LABS: SQUAMOUS EPITHELIAL CELL,UR FEW /LPF (FEW)
[2025-01-07 18:00] VITALS: BP 114/69; PULSE 75; RESP 16; TEMP 98.6; O2SAT 93
[2025-01-07 22:00] VITALS: BP 116/69; PULSE 73; RESP 18; TEMP 98; O2SAT 94
[2025-01-08 01:23] VITALS: BP 113/74; PULSE 75; RESP 16; TEMP 97.8; O2SAT 93
[2025-01-08 06:00] VITALS: BP 103/67; PULSE 67; RESP 16; TEMP 97.6; O2SAT 93
[2025-01-08 06:07] VITALS: RESP 16
[2025-01-08 06:52] LABS: BASOPHILS % (AUTO) 0.3 % (0-1); EOSINOPHILS % (AUTO) 0.7 % (0-6); HEMATOCRIT 36.2 % (35.0-45.0); HEMOGLOBIN 12.1 g/dl (12.0-16.0); LYMPHOCYTES # (AUTO) 3.1 X10'3 (1.1-4.8); LYMPHOCYTES % (AUTO) 43.4 % (21-51); MEAN CORPUSCULAR HEMOGLOBIN 32.7 PG (27.0-31.0); MEAN CORPUSCULAR HGB CONC 33.4 g/dL (33.0-36.5); MEAN CORPUSCULAR VOLUME 97.7 FL (78-98); MONOCYTES # (AUTO) 0.7 X10'3 (0-0.9); MONOCYTES % (AUTO) 9.1 % (2-12); NEUTROPHILS # (AUTO) 3.4 X10'3 (1.8-7.7); NEUTROPHILS % (AUTO) 46.5 % (42-75); PLATELET COUNT 266 X10'3 (140-440); RED BLOOD COUNT 3.71 X10'6 (4.20-5.60); RED CELL DISTRIBUTION WIDTH 13.7 % (11.5-14.5); WHITE BLOOD COUNT 7.2 X10'3 (4.5-11.0)
[2025-01-08 07:02] LABS: ALBUMIN 3.5 G/DL (3.4-5.0); ANION GAP 5 (8-16); BLOOD UREA NITROGEN 13 MG/DL (7-18); BUN/CREATININE RATIO 26.5 (10.0-20.0); CALCIUM 9.9 MG/DL (8.5-10.1); CHLORIDE 108 MMOL/L (99-107); CREATININE 0.49 MG/DL (0.40-0.90); GLUCOSE 87 MG/DL (70-104); POTASSIUM 4.1 MMOL/L (3.5-5.1); SODIUM 143 MMOL/L (135-145); TOTAL CARBON DIOXIDE 30.2 MMOL/L (24-32); eCRCL 94 ML/MIN; eGFR > 90 ML/MIN
[2025-01-08] MEDS ORDERED: ATOR40TA2 PO (07:20)
[2025-01-08] MEDS ORDERED: ASPI-1265 PO (07:20)
[2025-01-08] MEDS ORDERED: SUMA50TA17 PO ×2 (07:21→18:36)
[2025-01-08] MEDS ORDERED: PRED10TA23 PO ×2 (07:23→18:36)
[2025-01-08 07:55] VITALS: BP 148/86; PULSE 64
[2025-01-08] MEDS ORDERED: DIAZ2TAB PO (08:33)
[2025-01-08] MEDS ORDERED: CLOP-32 PO ×2 (08:37→18:36)
[2025-01-08] MEDS ORDERED: ASPI81TA52 PO (18:36)
== END 2025-01-08 09:45 | disposition home or self-care (01) | DRG 69 ==
LOC: ER 11:57 → ED HOLD 13:32 → ORTHO 4S 01-07 07:00
PROVIDERS: ADMIT Internal Medicine; ATTEND Internal Medicine
PROC: B3251ZZ Computerized Tomography (CT Scan) of Bilateral Common Carotid Arteries using Low Osmolar Contrast (ICD-10-PCS; principal; 2025-01-06)
PROC: B32G1ZZ Computerized Tomography (CT Scan) of Bilateral Vertebral Arteries using Low Osmolar Contrast (ICD-10-PCS; 2025-01-06)
PROC: B32R1ZZ Computerized Tomography (CT Scan) of Intracranial Arteries using Low Osmolar Contrast (ICD-10-PCS; 2025-01-06)
PROC: B3281ZZ Computerized Tomography (CT Scan) of Bilateral Internal Carotid Arteries using Low Osmolar Contrast (ICD-10-PCS; 2025-01-06)
DX: G45.9 Transient cerebral ischemic attack, unspecified (principal); E78.00 Pure hypercholesterolemia, unspecified; H81.10 Benign paroxysmal vertigo, unspecified ear; I16.0 Hypertensive urgency; I10 Essential (primary) hypertension; G89.4 Chronic pain syndrome; E11.9 Type 2 diabetes mellitus without complications; G43.909 Migraine, unspecified, not intractable, without status migrainosus; Z79.899 Other long term (current) drug therapy; Z88.8 Allergy status to other drugs, medicaments and biological substances; Z90.710 Acquired absence of both cervix and uterus
CPT/HCPCS: 36415; 70450; 70496; 70498; 70551; 71045; 80048; 80061; 81001; 82948; 83036; 83735; 84100; 85025; 85610; 85730; 87081; 93005; 93306; 96361; 96374; 97116; 97161; 97530; 99291; A6258; G0378; J1650; J1885; J2405; J7030; J7512; J8597; Q9967